=== PATIENT | female | born 1955 | race Caucasian/White ===

== ENCOUNTER 2017-10-16 10:10 | Day surgery (SDC) | payer OTHER ==
[2017-10-16] MEDS ORDERED: Sodium Chloride 0.9% 10 ML Syringe FLUSH PRN (10:15)
[2017-10-16] MEDS ORDERED: Lactated Ringers 1,000 ML IV SCH (10:15)
[2017-10-16] MEDS ORDERED: Propofol 200 MG/20 ML SDV ONE ×2 (11:10→11:18)
--- NOTE | 2017-10-16 11:58 | PCM.OPNOTE ---
- General Post-Op/Procedure Note Date of Surgery/Procedure: 10/16/17 Operative Procedure(s): Colonoscopy with Polypectomy Findings: Sig polyps / tics Pre Op Diagnosis: Screening Post-Op Diagnosis: Same Anesthesia Technique: MAC Primary Surgeon: Maury Simons Pathology: Polyps Complications: None Condition: Good Free Text/Narrative:: Intake & Output 10/15/17 10/16/17 10/16/17 22:59 06:59 14:59 Intake Total 700 Balance 700
--- NOTE | 2017-10-16 18:37 | OR ---
Date of Procedure: 10/16/2017 PREOPERATIVE DIAGNOSIS: Colon screening. POSTOPERATIVE DIAGNOSES: 1. Sigmoid colon polyps. 2. Sigmoid diverticulosis. PROCEDURE: Colonoscopy with polypectomy. ANESTHESIA: IV sedation. DESCRIPTION OF PROCEDURE: The patient was brought to the procedure room, where she was placed on her left side and IV sedation administered. Digital rectal exam was performed, which was normal. Colonoscope was inserted and advanced through a tortuous sigmoid colon to the level of the cecum. Cecum was confirmed by identifying the appendiceal lumen and the ileocecal valve. Prep was good and surfaces were well visualized. Upon withdrawing the scope, the ascending, transverse, and descending colon were normal in appearance. Sigmoid colon was quite tortuous with diverticula present. At 20 cm, from the anal verge were 2 adjacent large semi-pedunculated polyps. Both of these were removed with a cautery snare. The larger of the two had a portion of the stalk and base of polyp remaining, so this was transected again with the cautery snare. These will be sent as one specimen since they were at the same location. Rectum was normal and retroflexion was normal. Air was removed and the scope withdrawn. The patient tolerated the procedure well and returned to recovery in stable condition. The patient will be contacted with the pathology report when it returns. The polyps are obviously adenomatous and would recommend she undergo a repeat colonoscopy again in 2 years. SHY VARELA MD /[id number]
== END 2017-10-16 13:15 | disposition home or self-care (01) ==
LOC: LL.SDS 10:10
PROVIDERS: ATTEND Surgery
DX: Z12.11 Encounter for screening for malignant neoplasm of colon (principal); D12.5 Benign neoplasm of sigmoid colon; K57.30 Diverticulosis of large intestine without perforation or abscess without bleeding; Z88.0 Allergy status to penicillin; Z88.1 Allergy status to other antibiotic agents
CPT/HCPCS: J2704; J7120